=== PATIENT | female | born 1965 | race Caucasian/White ===

== ENCOUNTER 2020-03-02 10:03 | Outpatient (CLI) | payer OTHER, SELFPAY ==
--- NOTE | ~2020-03-02 | MM_ITS ---
EXAMINATION: MM screening ankur BI w shawanda HISTORY: Screening TECHNIQUE: Craniocaudal and mediolateral oblique 3-D tomosynthesis images were obtained and synthetic 2-D images were generated. CAD analysis was submitted and interpreted. COMPARISON: Comparison to multiple prior studies sequentially, with oldest reviewed study dated 11/2015. BREAST PARENCHYMAL COMPOSITION: There are scattered areas of fibroglandular density. FINDINGS: There is no evidence of suspicious mass, calcification, or architectural distortion to sugg est malignancy in either breast. There has been no suspicious interval change. IMPRESSION: 1. No mammographic evidence of malignancy. 2. Recommend routine screening mammography in one year. BI-RADS Category 1: Negative Reviewed, dictated and finalized at location A.
== END 2020-03-02 10:04 | disposition home or self-care (01) ==
PROVIDERS: PCP Family Medicine; Visit Provider Family Medicine
DX: Z12.31 Encounter for screening mammogram for malignant neoplasm of breast (principal)
CPT/HCPCS: 77063; 77067

== ENCOUNTER 2020-07-08 02:04 | Outpatient (CLI) | payer OTHER, SELFPAY ==
[2020-07-08 17:23] LABS: SARS-CoV-2 RNA PCR Negative
== END 2020-07-08 02:05 | disposition home or self-care (01) ==
LOC: ANHCOVIDDT 02:04
PROVIDERS: PCP Family Medicine; Visit Provider Internal Medicine Gastroenterology
DX: Z01.812 Encounter for preprocedural laboratory examination (principal); Z20.822 Contact with and (suspected) exposure to COVID-19
CPT/HCPCS: C9803; U0003

== ENCOUNTER 2020-07-11 01:25 | Day surgery (SDC) | payer OTHER, SELFPAY ==
[2020-06-29 10:55] VITALS: BMI 48.0
[2020-07-11 08:20] VITALS: BP 126/95; PULSE 84; RESP 20; TEMP 36.5; O2SAT 100
[2020-07-11] MEDS: LACTATED RINGERS 1,000 ML 150 ML IV CONT (08:31)
[2020-07-11 08:36] LABS: Glucose Point of Care 87 (65-105)
--- NOTE | 2020-07-11 09:04 | WPDANESEPPF ---
Anes - Initial Pre Proc Eval Procedure: Operation Date: 07/11/20 09:30 Proposed Procedures p Screening Colonoscopy - Seferino Aden MD Date/Time: 07/11/20 09:04 Surgeon: Seferino Aden MD Pre Op Diagnosis: neoplasm screening Patient Data Age: 54 Gender: F Height: 5 ft 3 in Weight: 120.6 kg Last Vital Signs Temp 97.7 F 07/11/20 08:20 Pulse 84 07/11/20 08:20 Resp 20 07/11/20 08:20 BP 126/95 H 07/11/20 08:20 Pulse Ox 100 07/11/20 08:20 Allergies Allergy/AdvReac Type Severity Reaction Status Date / Time No Known Allergies Allergy Unknown Verified 07/11/20 08:18 Home Medications Medication Instructions Recorded Confirmed Type furosemide 20 mg tablet 20 mg PO QAM #90 tablet 02/09/20 06/29/20 Rx lisinopril 20 mg tablet 20 mg PO DAILY #90 tablet 02/09/20 06/29/20 Rx metformin 1,000 mg tablet 1,000 mg PO BID #180 tablet 02/09/20 06/29/20 Rx rivaroxaban 2.5 mg tablet 2.5 mg PO BID #60 tablet 05/23/20 06/29/20 Rx Laboratory Tests 07/11/20 08:26 POC Capillary Glucose 87 mg/dl mg/dl (65-105) Patient hx anesthesia problems: none Family hx anesthesia problems: none PMFSH Past Medical History Medical History Benign essential HTN Borderline diabetes Diverticulitis Morbid obesity Varicose veins of bilateral lower extremities with other complications Family History Family History Sibling Family history of lung cancer, Onset Age: 66 Other Diabetes mellitus Social History Social History (Updated 05/23/20 @ 11:04 by Violetta Guillaume) Social History: Single Smoking packs per day: 0.5 Smoking cigarettes per day: 10.0 Years smoked: 6 Smoking pack-years: 3.00 Smoking status: Former smoker Tobacco type: cigarettes Second hand tobacco smoke exposure: No Smoking end date: 06/30/89 Alcohol intake: current Substance use: never Substance use type: does not use Additional living arrangements comments: pt lives w/mother. pt takes care of her mother Gender identity (if verbalized by the patient): Female Spiritual care concerns: No Anes - Eval Final PreProcedure Day of Procedure 07/11/20 09:04 Patient weight: morbidly obese Heart: regular rate and rhythm Lungs: clear to auscultation Airway: Mallampati scale class II Neurological: alert and oriented Last oral intake: >/= 8 hours ASA classification: III Emergent: no Anesthetic plan: proceed Anesthesia type and monitoring: general GIVS and standard monitoring Informed Consent: The patient's anesthetic plan and its attendant risks and benefits were discussed with the patient/family/POA. Questions were solicited and answers provided to the satisfaction of the patient/family/POA.
--- NOTE | 2020-07-11 09:30 | PM.HPGS ---
History of Present Illness History of Present Illness Consent: Risks, benefits, and alternatives have been discussed and questions answered. Patient agrees to proceed with procedure. Chief complaint: neoplasm screening Narrative: Ysabel Austin is a 54 year old female here for screening colonoscopy, last one 10 years ago. Review of Systems Constitutional: Constitutional: Denies headache(s) and Denies weakness Eyes: Eyes: Denies blurry vision ENT: Reports Normal hearing present, Denies headache(s) and Denies neck pain Cardiovascular: Cardiovascular: Denies chest pain and Denies dyspnea Respiratory: Respiratory: Denies dyspnea Gastrointestinal: Gastrointestinal: Reports no additional gastrointestinal complaints Genitourinary: Genitourinary: Denies dysuria Musculoskeletal: Musculoskeletal: Denies neck pain Integumentary/Breasts: Skin/Breast: Denies dry skin Neurologic: Reports Normal hearing present, Denies headache(s) and Denies weakness Psychiatric: Psychiatric: Denies anxiety Endocrine: Endocrine: Denies change in body appearance Hematologic/Lymphatic: Hematologic/Lymphatic: Denies easy bleeding Allergic/Immunologic: Allergic/Immunologic: Denies urticaria PMFSH Past Medical History Medical History (Updated 07/11/20 @ 09:30 by Seferino Aden MD) Benign essential HTN Borderline diabetes Colon cancer screening Diverticulitis Morbid obesity Varicose veins of bilateral lower extremities with other complications Family History Family History Sibling Family history of lung cancer, Onset Age: 66 Other Diabetes mellitus Social History Social History (Updated 05/23/20 @ 11:04 by Violetta Guillaume) Social History: Single Smoking packs per day: 0.5 Smoking cigarettes per day: 10.0 Years smoked: 6 Smoking pack-years: 3.00 Smoking status: Former smoker Tobacco type: cigarettes Second hand tobacco smoke exposure: No Smoking end date: 06/30/89 Alcohol intake: current Substance use: never Substance use type: does not use Additional living arrangements comments: pt lives w/mother. pt takes care of her mother Gender identity (if verbalized by the patient): Female Spiritual care concerns: No Meds Home Medications and Allergies Home Medications Medication Instructions Recorded Confirmed Type furosemide 20 mg tablet 20 mg PO QAM #90 tablet 02/09/20 06/29/20 Rx lisinopril 20 mg tablet 20 mg PO DAILY #90 tablet 02/09/20 06/29/20 Rx metformin 1,000 mg tablet 1,000 mg PO BID #180 tablet 02/09/20 06/29/20 Rx rivaroxaban 2.5 mg tablet 2.5 mg PO BID #60 tablet 05/23/20 06/29/20 Rx Allergies Allergy/AdvReac Type Severity Reaction Status Date / Time No Known Allergies Allergy Unknown Verified 07/11/20 08:18 Vital Signs Vital Signs - 24 hr 07/11/20 08:20 Temperature 97.7 F Pulse Rate 84 Respiratory Rate 20 Blood Pressure 126/95 H Pulse Oximetry 100 Exam Const: General: comfortable and no acute distress HENMT: General nose exam: Normal nares present Eyes: General: appearance normal, both eyes and all related structures Neck: Neck: no JVD Resp: Auscultation: clear to auscultation bilaterally Cardio: Rate: regular rate Rhythm: regular rhythm GI: Inspection: non-distended GI Palp: Yes Soft to palpation Skin: General skin exam: normal color Neuro: General: gait normal Speech: normal speech Extrem: General: normal to inspection Psych: Mental Status: mental status grossly normal Assessment and Plan Assessment and plan (1) Colon cancer screening: Code(s): Z12.11 - Encounter for screening for malignant neoplasm of colon Status: Acute Assessment and Plan: will proceed with colonoscopy
[2020-07-11 09:52] VITALS: BP 91/55; PULSE 73; RESP 18; O2SAT 100
[2020-07-11 10:02] VITALS: BP 104/62; PULSE 73; RESP 20; O2SAT 99
[2020-07-11 10:21] VITALS: BP 99/65; PULSE 76; RESP 20; O2SAT 100
== END 2020-07-11 10:34 | disposition home or self-care (01) ==
PROVIDERS: PCP Family Medicine; Visit Provider Internal Medicine Gastroenterology
PROC: 0DJD8ZZ Inspection of Lower Intestinal Tract, Via Natural or Artificial Opening Endoscopic (ICD-10-PCS; CPT 45378; principal; 2020-07-11 09:30)
DX: Z12.11 Encounter for screening for malignant neoplasm of colon (principal); K57.30 Diverticulosis of large intestine without perforation or abscess without bleeding; K64.8 Other hemorrhoids; Z87.19 Personal history of other diseases of the digestive system; Z79.84 Long term (current) use of oral hypoglycemic drugs; I10 Essential (primary) hypertension; R73.03 Prediabetes; E66.01 Morbid (severe) obesity due to excess calories; Z68.42 Body mass index [BMI] 45.0-49.9, adult; Z87.891 Personal history of nicotine dependence
CPT/HCPCS: 45378; C9803; J2704; J7120; U0003

== ENCOUNTER 2021-03-07 09:45 | Outpatient (CLI) | payer OTHER, SELFPAY ==
--- NOTE | ~2021-03-07 | MM_ITS ---
EXAMINATION: MM screening ankur BI w shawanda HISTORY: Screening mammogram TECHNIQUE: Craniocaudal and mediolateral oblique 3-D tomosynthesis images were obtained and synthetic 2-D images were generated. CAD analysis was submitted and interpreted. COMPARISON: 03/02/2020, 05/14/2018, 06/05/2016 bilateral digital screening mammogram examinations BREAST PARENCHYMAL COMPOSITION: There are scattered areas of fibroglandular density. FINDINGS: There is no evidence of suspicious mass, calcification, or architectural distortion to sugg est malignancy in either breast. There has been no suspicious interval change. IMPRESSION: 1. No mammographic evidence of malignancy. 2. Recommend routine screening mammography in one year. BI-RADS Category 1: Negative Reviewed, dictated and finalized at location A.
== END 2021-03-07 09:46 | disposition home or self-care (01) ==
LOC: ANHIMG 09:47
PROVIDERS: PCP Family Medicine; Visit Provider Family Medicine
DX: Z12.31 Encounter for screening mammogram for malignant neoplasm of breast (principal)
CPT/HCPCS: 77063; 77067

== ENCOUNTER 2021-10-20 07:45 | Outpatient (CLI) | payer OTHER, SELFPAY ==
--- NOTE | ~2021-10-20 | US_ITS ---
EXAMINATION: US venous doppler [facility] DATE: 10/20/2021 09:06 INDICATION: Phlebitis and thrombophlebitis of lower extremity. TECHNIQUE: Grayscale ultrasound images without and with compression and Doppler ultrasound images of the bilateral lower extremity veins were obtained. COMPARISON: Ultrasound 01/16/2017 FINDINGS: The visualized portions of right common femoral vein, profunda (deep) femoral vein, femoral vein, pop liteal vein, peroneal veins, posterior tibial veins, and greater saphenous vein outflow are patent. The visualized portions of left common femoral vein, profunda femoral vein, femoral vein, popliteal v ein, peroneal veins, posterior tibial veins, and greater saphenous vein outflow are patent. IMPRESSION: 1. No deep venous thrombosis. Reviewed, dictated and finalized at location B.
--- NOTE | ~2021-10-20 | US_ITS ---
EXAMINATION: US art doppler w press LE BI DATE: 10/20/2021 09:07 INDICATION: Phlebitis and thrombophlebitis of the lower extremities TECHNIQUE: Segmental pressures and plethysmographic and Doppler waveforms of the brachial and lower e xtremity arteries were obtained. COMPARISON: None. FINDINGS: Right and left brachial artery pressures of 113 mm Hg and 111 mm Hg, respectively, are concordant (no rmal difference <= 30 mmHg). The right and left high-thigh pressure indices were unable to be obtaine d due to patient body habitus. The right ankle-brachial index (CURTIS) is 0.93 (normal >= 0.9-1). The right great toe-brachial index (T BI) is 0.54 (normal >= 0.6-0.8). The right lower extremity segmental pressure gradients are increased between the right above and kwsmi-ttk-wdxj popliteal artery and borderline elevated between the righ t vwsoj-zps-dutr popliteal artery and the arteries at the right ankle (normal gradients <= 20-30 mmHg between adjacent levels on the same leg or the same levels on the two legs). Arterial waveforms are biphasic with brisk systolic upstrokes throughout the arteries of the right lower limb. The left CURTIS is 1.02. The left TBI is 0.62. The left lower extremity segmental pressure gradients are increased between the left above and hsqtc-vgb-xvlj popliteal artery and borderline elevated between the left mjnxa-xee-dwmi popliteal artery and the arteries at the right ankle. Arterial waveforms are triphasic at the left common femoral artery and biphasic at the remaining arteries in the left lower limb with brisk systolic upstrokes throughout. IMPRESSION: 1. Mild arterial occlusive disease to the right lower limb with borderline right CURTIS and moderately d ecreased right TBI. 2. Normal left CURTIS with borderline decreased left TBI. Reviewed, dictated and finalized at location A. IMPRESSION: 1. Mild arterial occlusive disease to the right lower limb with borderline righ t CURTIS and moderately decreased right TBI. 2. Normal left CURTIS with borderline decreased left TBI.
== END 2021-10-20 07:46 | disposition home or self-care (01) ==
PROVIDERS: PCP Family Medicine; Visit Provider Nurse Practitioner Gerontology
DX: I80.3 Phlebitis and thrombophlebitis of lower extremities, unspecified (principal); M79.606 Pain in leg, unspecified; R60.9 Edema, unspecified; I73.9 Peripheral vascular disease, unspecified
CPT/HCPCS: 93923; 93970

== ENCOUNTER 2022-04-24 14:15 | Outpatient (CLI) | payer OTHER, SELFPAY ==
--- NOTE | ~2022-04-24 | MM_ITS ---
EXAMINATION: MM screening ankur BI w shawanda HISTORY: Screening mammogram, family history of breast cancer in her sister. TECHNIQUE: Craniocaudal and mediolateral oblique 3-D tomosynthesis images were obtained and synthetic 2-D images were generated. CAD analysis was submitted and interpreted. COMPARISON: 03/07/2021, 03/02/2020, 05/14/2018 BREAST PARENCHYMAL COMPOSITION: There are scattered areas of fibroglandular density. FINDINGS: Scattered benign-appearing calcifications are present. No suspicious mass, calcification, o r architectural distortion are identified in either breast to suggest malignancy. There has been no s uspicious interval change. IMPRESSION: 1. No mammographic evidence of malignancy. 2. Recommend routine screening mammography in one year. BI-RADS Category 2: Benign finding(s). Reviewed, dictated and finalized at location A.
== END 2022-04-24 14:16 | disposition home or self-care (01) ==
LOC: ANHIMG 14:18
PROVIDERS: PCP Family Medicine; Visit Provider Nurse Practitioner Gerontology
DX: Z12.31 Encounter for screening mammogram for malignant neoplasm of breast (principal)
CPT/HCPCS: 77063; 77067

== ENCOUNTER 2023-09-02 08:09 | Outpatient (CLI) | payer OTHER, SELFPAY ==
--- NOTE | ~2023-09-02 | MM_ITS ---
EXAMINATION: MM screening ankur BI w shawanda HISTORY: Screening mammogram TECHNIQUE: Craniocaudal and mediolateral oblique 3-D tomosynthesis images were obtained and synthetic 2-D images were generated. CAD analysis was submitted and interpreted. COMPARISON: 04/24/2022, 03/07/2021 screening mammogram examinations BREAST PARENCHYMAL COMPOSITION: The breasts are almost entirely fatty. FINDINGS: There is no evidence of suspicious mass, calcification, or architectural distortion to sugg est malignancy in either breast. There has been no suspicious interval change. IMPRESSION: 1. No mammographic evidence of malignancy. 2. Recommend routine screening mammography in one year. BI-RADS Category 1: Negative Reviewed, dictated and finalized at location A. 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
== END 2023-09-02 08:10 | disposition home or self-care (01) ==
LOC: ANHIMG 08:11
PROVIDERS: PCP Family Medicine; Visit Provider Family Medicine
DX: Z12.31 Encounter for screening mammogram for malignant neoplasm of breast (principal)
CPT/HCPCS: 77063; 77067

== ENCOUNTER 2023-09-26 14:50 | Outpatient (CLI) | payer OTHER, SELFPAY ==
--- NOTE | ~2023-09-26 | XR_ITS ---
EXAMINATION: XR chest 2V Exam Date/Time: 09/26/2023 15:00 CDT HISTORY: R06.00 - Dyspnea, unspecified Comparison: 08/11/2011. RESULT: Lines, tubes, and devices: Cholecystectomy clips. Lungs and pleura: Mild diffuse reticulonodular opacities. Cardiomediastinal silhouette: Stable. Other: No acute osseous or upper abdominal finding. IMPRESSION: Pulmonary opacities may represent bronchiolitis, as can be seen with atypical infection, asthma, aspi ration, and small airways disease. Reviewed, dictated and finalized at location K. IMPRESSION: Pulmonary opacities may represent bronchiolitis, as can be seen with atypical i nfection, asthma, aspiration, and small airways disease.
== END 2023-09-26 14:51 | disposition home or self-care (01) ==
LOC: ANHIMG 14:53
PROVIDERS: PCP Family Medicine; Visit Provider Physician Assistant
DX: R06.00 Dyspnea, unspecified (principal); R91.8 Other nonspecific abnormal finding of lung field
CPT/HCPCS: 71046

== ENCOUNTER 2023-10-07 14:57 | Outpatient (CLI) | payer OTHER, SELFPAY ==
--- NOTE | ~2023-10-07 | CT_ITS ---
Non-contrast Head CT History: Dizziness and giddiness Technique: Axial non-contrast imaging of the brain was performed. Dose reduction technique was used on this scan by utilizing automated exposure control and iterative reconstruction technique. The dose -length product (DLP) was 605.33 mGy-cm. Findings: There is no evidence of intracranial hemorrhage, mass lesion, or acute infarct. Brain par enchyma appears normal. The ventricles and subarachnoid spaces are normal in size. The calvarium ap pears normal. The visualized paranasal sinuses and mastoid air cells are clear. Impression: No significant abnormality seen. Reviewed, dictated and finalized at location . Impression: No significant abnormality seen.
== END 2023-10-07 14:58 | disposition home or self-care (01) ==
LOC: ANHIMG 15:07
PROVIDERS: PCP Family Medicine; Visit Provider Physician Assistant
DX: H53.9 Unspecified visual disturbance (principal); R27.0 Ataxia, unspecified
CPT/HCPCS: 70450

== ENCOUNTER 2023-10-15 10:37 | Outpatient (CLI) | payer OTHER, SELFPAY ==
--- NOTE | 2023-10-15 10:51 | ECHO_ITS ---
Patient Info Name: Ysabel Austin Age: 57 years : 1965 Gender: Female Ht: 63 in Wt: 272 lbs BSA: 2.42 m2 HR: 84 bpm BP: 117 / 87 mmHg Heart Rhythm: Sinus Rhythm Technical Quality: Fair Exam Date: 10/15/2023 11:56 AM Exam Location: Echo Lab Patient Status: Outpatient Admit Date: 10/15/2023 Staff Ordering Physician: Rafaela Berrios PA-C Proof Passer: Susanne Manuel RDCS Attending Provider: Rafaela Berrios PA-C Referring Physician: Agustina YORK; Exam Type: CA echo dop color flow w con Study Info Indications R55 - Syncope and collapse Complete two-dimensional, color flow and Doppler transthoracic echocardiogram is performed with contrast to opacify the left ventricle and to improve the deliniation of the left ventricle endocardial borders. Contrast/Agitated Saline Contrast/Ag. Saline: Definity Amount: 2.00 ml Administered By: Susanne Manuel RDCS Existing IV Access: Yes IV Access Condition: patent with no signs of infiltration Summary 1. Definity contrast administered improved wall motion interpretation. 2. Left ventricular chamber dimension is normal. 3. Left ventricular systolic function is normal, estimated at 55-60%. 4. The left ventricular diastolic function is grade I diastolic dysfunction. 5. E/e' 8 is minimally elevated. Left Ventricle E/e' 8 is minimally elevated. Definity contrast administered improved wall motion interpretation. Left ventricular chamber dimension is normal. Left ventricular systolic function is normal, estimated at 55-60%. The left ventricular diastolic function is grade I diastolic dysfunction. Right Ventricle Right ventricular systolic function is normal and with normal TAPSE 2.5 cm. Right ventricular chamber dimension is normal. Left Atria Left atrial chamber dimension is normal. Right Atria Right atrial chamber dimension is normal. Aortic Valve The aortic valve is trileaflet. There is no aortic valve stenosis. There is no aortic valve regurgitation. Pulmonic Valve There is no pulmonic regurgitation. Mitral Valve There is no mitral valve stenosis. There is no mitral valve regurgitation. Tricuspid Valve There is no tricuspid valve regurgitation. Pericardium/Pleural There is no pericardial effusion. Inferior Vena Cava Normal inferior vena cava with >50% collapse upon inspiration consistent with normal right atrial pressure, 5 mmHg. Aorta The aortic root size at the sinus of Valsalva is normal. Tricuspid Valve Name Value Normal Estimated PAP/RSVP RA Pressure 5 mmHg <=5 Report Signatures
[2023-10-15] MEDS: PERFLUTREN LIPID MICROSPHERES 1.5 ML VIAL DILUTED TO 10 ML TOTAL VOLUME IV PUSH (12:30)
--- NOTE | 2023-10-15 12:51 | IVDEFINITY ---
Prior to administration of IV Definity the patient was educated on the risks and benefits of the imaging enhancing agent including potential adverse side effects. The patient verbalized understanding. Allergies were verified. No exclusion criteria were identified and at least one of the following inclusion criteria were met: 1) physician request, 2) patient technically difficult to image (per the [place] [employer]ocardi[employer] guidelines of two or more segments not discernable within the apical view), or 3) questionable left ventricular function. ?
== END 2023-10-15 10:38 | disposition home or self-care (01) ==
LOC: ANHCARD 10:37
PROVIDERS: PCP Family Medicine; Visit Provider Physician Assistant
DX: R55 Syncope and collapse (principal)
CPT/HCPCS: C8929; Q9957

== ENCOUNTER 2024-05-18 14:28 | Outpatient (CLI) | payer OTHER, SELFPAY ==
--- NOTE | ~2024-05-18 | XR_ITS ---
EXAMINATION: XR_[id number]_CR DATE: 05/18/2024 14:52 INDICATION: Neck pain. TECHNIQUE: 4 views of cervical spine were obtained. COMPARISON: None. FINDINGS: There is kyphosis of lower cervical spine. Vertebral body heights are normal. There is mild ly decreased disc height at C4-C5 and moderately decreased disc height at C5-C6 and C6-C7. There is m ultilevel facet joint osteoarthritis, moderate on the left from C3-C4 through C5-C6. No central canal stenosis or prevertebral soft tissue swelling. IMPRESSION: 1. Moderate cervical spondylosis. Reviewed, dictated and finalized at location A. 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
== END 2024-05-18 14:29 | disposition home or self-care (01) ==
LOC: MICIMG 14:29
PROVIDERS: PCP Family Medicine; Visit Provider Physician Assistant
DX: M43.02 Spondylolysis, cervical region (principal)
CPT/HCPCS: 72040

== ENCOUNTER 2024-05-25 04:35 | Emergency (ER) | payer OTHER, SELFPAY ==
--- NOTE | ~2024-05-25 | XR_ITS ---
EXAMINATION: XR chest 1V portable DATE: 05/25/2024 05:03 INDICATION: Chest pain. TECHNIQUE: A single frontal view of the chest was obtained. COMPARISON: Chest 2 views 09/26/2023 FINDINGS: Again seen is eventration of anterior right hemidiaphragm. No pneumonia, pleural effusion, or pneumothorax. The heart size is normal. Calcified mediastinal lymph nodes are consistent with old granulomatous disease. IMPRESSION: 1. No acute cardiopulmonary disease. Reviewed, dictated and finalized at location A. 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
--- NOTE | 2024-05-25 04:35 | ECG_ITS ---
Test Date: 2024-05-25 04:46:12 Measurements Intervals [place] Rate: 88 P: 56 [place]: 151 QRS: 36 QRSD: 73 T: 42 QT: 323 QTc: 393 Interpretive Statements SINUS RHYTHM LOW QRS VOLTAGE IN PRECORDIAL LEADS BASELINE ARTIFACT- I, II, III, AVR, AVL, AVF, V4-V6 BORDERLINE ECG No previous ECG available for comparison Electronically Signed On 05-25-2024 06:26:37 FINANCIAL WRITER by Orestes Fowler D.O.
[2024-05-25 04:39] VITALS: PULSE 91; RESP 20; TEMP 36.4; O2SAT 100
[2024-05-25 04:45] VITALS: O2SAT 99
[2024-05-25 05:03] LABS: Basophils Percent Auto 0.3 % (0.2-1.2); Eosinophils Percent Auto 0.2 % (0-4.4); Hematocrit 43.2 % (37.0-47.0); Hemoglobin 13.8 g/dL (12.0-15.0); Immature Granulocyte Absolute 0.07 K/mm3 (0.00-0.031); Immature Granulocyte Percent A 0.6 % (0-0.5); Lymphocytes Absolute Auto 4.14 K/mm3 (0.9-3.2); Lymphocytes Percent Auto 34.7 % (18.3-44.2); Mean Corpuscular HGB Conc 31.9 g/dl (32-36); Mean Corpuscular Hemoglobin 28.2 pg (26-34); Mean Corpuscular Volume 88.2 fl (80-100); Mean Platelet Volume 9.5 fl (7.4-10.4); Monocytes Absolute Auto 1.1 K/mm3 (0.1-0.6); Monocytes Percent Auto 9.6 % (2.6-8.5); Neutrophils Absolute Auto 6.5 K/mm3 (1.3-6.7); Neutrophils Percent Auto 54.6 % (45.5-73.1); Platelet Count Result 357 k/mm3 (150-375); Red Cell Distribution Width 13.8 % (11.5-14.5); White Blood Count 11.9 K/mm3 (4.5-10.0)
[2024-05-25 05:07] LABS: Prothrombin Time 13.3 Seconds (11.1-14.7)
[2024-05-25 05:08] LABS: Partial Thromboplastin Time 26.7 Seconds (22.3-36.8)
[2024-05-25 05:11] LABS: Alanine Aminotransferase 15 U/L (6-35); Albumin Level 4.6 g/dL (3.5-5.1); Alkaline Phosphatase 88 U/L (38-126); Anion Gap 10 mmol/L (4-12); Aspartate Amino Transferase 17 U/L (14-36); Bilirubin,Total 0.6 mg/dL (0.2-1.3); Blood Urea Nitrogen 25 mg/dL (7-17); Calcium 9.4 mg/dL (8.4-10.2); Carbon Dioxide 24 mmol/L (22-30); Chloride 104 mmol/L (98-107); Estimated CRCL calculation 83 ml/min; Estimated Glomerular Filt Rate > 60; Glucose 110 mg/dL (65-110); Lipase 97 U/L (23-300); Potassium 4.1 mmol/L (3.4-5.0); Sodium 138 mmol/L (137-145)
[2024-05-25 05:29] LABS: Troponin I < 0.012 ng/mL (0.000-0.034)
--- NOTE | 2024-05-25 07:23 | ED.CHESTPAIN ---
HPI - Chest Pain General Chief Complaint: Chest Pain Stated Complaint: Chest and arm pain Time Seen by Provider: 05/25/24 07:12 History of Present Illness HPI narrative: Pt presents with pain in upper back and left shoulder radiating down back of left arm and into chest contantly for several days. Pt has seen PCP and started on muscle relaxer and prednisone but has gotten no relief. Pt says it is worse with movement and cannot sleep. The pain never completely goes away. Pt denies SOB. Related Data Allergies Allergy/AdvReac Type Severity Reaction Status Date / Time ibuprofen AdvReac Vomiting Verified 05/25/24 04:44 Review of Systems Review of Systems: All systems reviewed & are unremarkable except as noted in HPI and below PMFSH Past Medical History Medical History Benign essential HTN BMI greater than 40 Borderline diabetes Colon cancer screening Diverticulitis Left knee DJD Morbid obesity Varicose veins of bilateral lower extremities with other complications Family History Family History Sibling Family history of lung cancer, Onset Age: 66 Other Diabetes mellitus Social History Social History Social History: Single Smoking packs per day: 0.5 Smoking cigarettes per day: 10.0 Years smoked: 6 Smoking pack-years: 3.00 Smoking status: Former smoker Tobacco type: cigarettes Second hand tobacco smoke exposure: No Smoking end date: 06/30/89 Alcohol intake: current Alcohol use details: Occasionally Substance use: never Substance use type: does not use Do You Feel Safe in your Home?: Yes Lack of Transportation: No Lack of Food: Never True Current Housing: I Have Housing Concerned About Future Housing: No Difficulty Paying Gas/Electric Bills: No Difficulty Paying for Meds: No Currently Unemployed: No Education: Don't Know Difficulty w/ Childcare or Family Care: No Living arrangements: with family Additional living arrangements comments: pt lives w/mother. 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 Gender identity (if verbalized by the patient): Female Sexual Orientation (if Verbalized by the Patient): Straight or Heterosexual Spiritual care concerns: No Exam Const: General: healthy appearing and no acute distress Nutritional Appearance: well nourished Orientation/consciousness: patient oriented x3 Limitations: no limitations Neck: Neck: normal visual inspection Chest: Chest palpation & inspection: normal inspection of the chest Resp: Effort & Inspection: normal respiratory effort Auscultation: clear to auscultation bilaterally Cardio: Rate: regular rate Rhythm: regular rhythm Back/Spine/Pelvis: Other: tender trapezius muscle on left with spasm Skin: General skin exam: normal color Rashes: no rashes Wounds: no wounds Neuro: General: patient oriented x3, moves all extremities and no focal motor deficits Speech: normal speech Extrem: General: normal to inspection and no clubbing, cyanosis or edema Psych: Mental Status: mental status grossly normal Affect: normal affect Attitude: cooperative Course Vital Signs Vital signs: Vital Signs Temperature 97.6 F 05/25/24 04:39 Pulse Rate 91 05/25/24 04:39 Respiratory Rate 20 05/25/24 04:39 Pulse Oximetry 100 05/25/24 04:39 Oxygen Delivery Room Air 05/25/24 04:39 Temperature 97.6 F 05/25/24 04:39 Pulse Rate 76 05/25/24 09:01 Respiratory Rate 17 05/25/24 09:01 Blood Pressure 122/88 05/25/24 09:01 Pulse Oximetry 100 05/25/24 09:01 Oxygen Delivery Room Air 05/25/24 04:45 MDM - Chest Pain MDM Narrative Medical decision making narrative: Pt presents with left shoulder and back pain radiating down arm and into chest for several days prednisone and muslce relaxer not helping . Doubt cardiac but will rule out with ekg and cxr and labs. Will try valium and morphine here while waiting and likely home on nrco and valium with follow up. second trop ok. Pt feels better home on norco and valium Lab Data 05/25/24 04:50 05/25/24 04:50 Labs: Lab Results 05/25/24 05/25/24 Range/Units 04:50 07:36 WBC 11.9 H (4.5-10.0) K/mm3 RBC 4.90 (4.2-5.4) M/mm3 Hgb 13.8 (12.0-15.0) g/dL Hct 43.2 (37.0-47.0) % MCV 88.2 (80-100) fl MCH 28.2 (26-34) pg MCHC 31.9 L (32-36) g/dl RDW 13.8 (11.5-14.5) % Plt Count 357 (150-375) k/mm3 MPV 9.5 (7.4-10.4) fl Immature Gran % (Auto) 0.6 H (0-0.5) % Neut % (Auto) 54.6 (45.5-73.1) % Lymph % (Auto) 34.7 (18.3-44.2) % [place] % (Auto) 9.6 H (2.6-8.5) % Eos % (Auto) 0.2 (0-4.4) % Baso % (Auto) 0.3 (0.2-1.2) % Lymph # (Auto) 4.14 H (0.9-3.2) K/mm3 [place] # (Auto) 1.1 H (0.1-0.6) K/mm3 Eos # (Auto) 0.0 (0-0.3) K/mm3 Baso # (Auto) 0.0 (0.0-0.1) K/mm3 Abs Immat Gran (auto) 0.07 H (0.00-0.031) K/mm3 Absolute Neuts (auto) 6.5 (1.3-6.7) K/mm3 Absolute Nucleated RBC 0.000 (0.0-0.012) K/mm3 Nucleated RBC % 0.0 (0.0-0.2) % PT 13.3 (11.1-14.7) Seconds INR 1.0 APTT 26.7 (22.3-36.8) Seconds Sodium 138 (137-145) mmol/L Potassium 4.1 (3.4-5.0) mmol/L Chloride 104 (98-107) mmol/L Carbon Dioxide 24 (22-30) mmol/L Anion Gap 10 (4-12) mmol/L BUN 25 H (7-17) mg/dL Creatinine 0.80 (0.7-1.0) mg/dL Estim Creat Clear Calc 83 ml/min Estimated GFR > 60 (59 - ) Glucose 110 (65-110) mg/dL Calcium 9.4 (8.4-10.2) mg/dL Total Bilirubin 0.6 (0.2-1.3) mg/dL AST 17 (14-36) U/L ALT 15 (6-35) U/L Alkaline Phosphatase 88 (38-126) U/L Troponin I < 0.012 < 0.012 (0.000-0.034) ng/mL Total Protein 8.0 (6.3-8.2) g/dL Albumin 4.6 (3.5-5.1) g/dL Lipase 97 (23-300) U/L Discharge Plan Discharge Clinical Impression: Spasm of left trapezius muscle Patient Disposition: Home, Self-Care Condition: Improved Instructions: Antibiotic Form, Muscle Spasm (ED) Prescriptions: New hydrocodone-acetaminophen 5-325 mg tablet 1 tablet PO Q6H PRN (Reason: pain) Qty: 14 0RF diazepam [Valium] 5 mg tablet 5 mg PO TID PRN (Reason: muscle spasm) Qty: 14 0RF No Action fluticasone propionate 50 mcg/actuation spray,suspension 1 spray intranasal DAILY Qty: 16 0RF Rx Instructions: administer into each nostril paroxetine HCl 20 mg tablet 20 mg PO .COMPLEX Qty: 30 2RF Rx Instructions: Start by taking 10mg (1/2 tab) PO x7 days, then increase to 20 mg (1 tab) PO daily celecoxib [Celebrex] 200 mg capsule 200 mg PO BID Qty: 60 0RF Hold Instructions: .Provider Order prednisone 10 mg tablet 10 mg PO DAILY Qty: 30 0RF Rx Instructions: Take PO 4 tabs daily x3 days, 3 tabs daily x3 days, 2 tabs daily x3 days, 1 tab daily x3 days tizanidine 2 mg tablet 2 mg PO TID PRN (Reason: muscle spasticity) Qty: 60 0RF lisinopril 20 mg tablet See Rx Instructions .ROUTE .COMPLEX Qty: 90 1RF Dose Instruction: TAKE 1 TABLET BY MOUTH DAILY Rx Instructions: TAKE 1 TABLET BY MOUTH DAILY metformin 1,000 mg tablet 1,000 mg PO BID Qty: 180 0RF Follow-up/Referrals: Ivanna Quinteros MD [Primary Care Provider] - Stand Alone Forms: Work/School Release IP
[2024-05-25] MEDS: diazePAM INJ (*CRX) 10 MG/2 ML SYRINGE 5 MG IV PUSH (07:34)
[2024-05-25] MEDS: MORPHINE SULFATE (*CRX) 4 MG/ML INJ IV PUSH (07:34)
[2024-05-25 07:35] VITALS: BP 102/59; PULSE 89; RESP 19; O2SAT 100
[2024-05-25 08:16] VITALS: BP 132/87; PULSE 77; RESP 17; O2SAT 100
[2024-05-25 08:19] LABS: Troponin I < 0.012 ng/mL (0.000-0.034)
[2024-05-25 09:01] VITALS: BP 122/88; PULSE 76; RESP 17; O2SAT 100
== END 2024-05-25 09:17 | disposition home or self-care (01) ==
PROVIDERS: Student in an Organized Health Care Education/Training Program; Emergency Provider Emergency Medicine; PCP Family Medicine
DX: M62.830 Muscle spasm of back (principal); I10 Essential (primary) hypertension; E66.01 Morbid (severe) obesity due to excess calories; Z68.42 Body mass index [BMI] 45.0-49.9, adult
CPT/HCPCS: 36415; 71045; 80053; 83690; 84484; 85025; 85610; 85730; 93005; 96374; 96375; 99284; J2270; J3360

== ENCOUNTER 2024-06-21 13:09 | Outpatient (CLI) | payer OTHER, SELFPAY ==
--- NOTE | ~2024-06-21 | MR_ITS ---
EXAMINATION: MR cervical spine wo con DATE: 06/21/2024 13:47 INDICATION: Other spondylosis with radiculopathy, cervical region. TECHNIQUE: Magnetic resonance imaging (MRI) of the cervical spine was performed without intravenous c ontrast. COMPARISON: Cervical spine radiographs 05/18/2024 FINDINGS: There is 2 mm anterolisthesis of C4 on C5. There is mild kyphosis of cervical spine. Verteb ral body heights are normal. There is mildly decreased disc height at C4-C5 and moderately decreased disc height at C5-C6 and C6-C7. The spinal cord signal intensity is normal. The following disc levels are specifically discussed: C2-C3: The disc does not extend beyond the endplate margin. There is no uncovertebral joint osteoarth ritis. There is moderate right and severe left facet joint osteoarthritis. There is no neural foramin al stenosis. There is no central canal stenosis. C3-C4: The disc does not extend beyond the endplate margin. There is no uncovertebral joint osteoarth ritis. There is mild right and severe left facet joint osteoarthritis. There is mild left neural fora julian stenosis. There is no central canal stenosis. C4-C5: The disc does not extend beyond the endplate margin. There is mild bilateral uncovertebral kj nt osteoarthritis. There is severe bilateral facet joint osteoarthritis. There is mild left neural fo raminal stenosis. There is no central canal stenosis. C5-C6: The disc is bulging. There is moderate bilateral uncovertebral joint osteoarthritis. There is severe left facet joint osteoarthritis. There is mild bilateral neural foraminal stenosis. There is m ild central canal stenosis with ventral indentation of the spinal cord. C6-C7: The disc is bulging. There is moderate and severe left uncovertebral joint osteoarthritis. The re is mild left facet joint osteoarthritis. There is mild right and moderate left neural foraminal st enosis. There is mild central canal stenosis with ventral indentation of the spinal cord. C7-T1: The disc does not extend beyond the endplate margin. There is no uncovertebral joint osteoarth ritis. There is moderate right and mild left facet joint osteoarthritis. There is mild right neural f oraminal stenosis. There is no central canal stenosis. IMPRESSION: 1. Moderate cervical spondylosis. Reviewed, dictated and finalized at location A. VERY DRIVER/SUPERVISOR
--- OUTSIDE RECORDS SUMMARY | 2024-06-28 18:44 | XMS_ITS | Clinical Summary ---
Author Organization [facility] Address [address] [place] [address]. [place] [address] [place] [address] Care Team Providers Care Mortgage Lender Name Role Phone Ivanna Quinteors MD Primary Care Provider [phone] Allergies No known active allergies Medications metFORMIN 1000 MG tablet Take 1,000 mg by mouth 2 (two) times daily with meals. Active furosemide 20 MG tablet Take 20 mg by mouth daily. Active lisinopril-hydro chlorothiazide 20-12.5 MG tablet Take 1 tablet by mouth daily. Active hydrocodone-acet aminophen 5-325 MG tabletIndication s:Acute Pain < 7 Day Supply Take 1 tablet by mouth every 6 (six) hours as needed for Pain. 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 Gender Identity Not on file Sexual Orientation Not on file Last Filed Vital Signs Vital Sign Reading Time Taken Comments Blood Pressure 125/54 05/16/2019 5:54 PM 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 Pulse 100 05/16/2019 3:42 PM 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 Temperature 36.2 ??C (97.2 ??F) 05/16/2019 3:42 PM CS T Respiratory Rate 20 05/16/2019 3:42 PM 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 Oxygen Saturation 99% 05/16/2019 5:54 PM 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 Inhaled Oxygen Concentration - - Weight 128.4 kg (283 lb) 05/16/2019 3:42 PM 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 Height 160 cm (5' 3 ) 05/16/2019 3:42 PM 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 Body Mass Index 50.13 05/16/2019 3:42 PM 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 Plan of Treatment Health Maintenance Due Date Last Done Comments Cervical Cancer Screening Pa p Smear (Age 30 to 64) Every 3 Years 1963 Colorectal Cancer Screening Colonoscopy (10 Years) 1963 Annual Physical 12/06/1966 Hepatitis C 12/06/1981 DTaP, Tdap and Td Vaccines ( 1 - Tdap) 12/06/1982 Cervical Cancer Screening Pa p with HPV Testing (Age 30 to 64) Every 5 Years 12/06/1993 Cervical Cancer Screening with HPV 12/06/1993 Mammogram Screening 2003 Zoster Vaccines (1 of 2) 12/06/2013 COVID-19 Vaccine ( - 2023-2 5 season) 2024 Influenza Adult (#1) 2024 RSV Immunization or 60+ Years (1 - 1-dose 75+ series) 12/06/2038 Meningococcal Vaccine Aged Out No guido jayne eligible based on patient's age to complete this topic Pneumococcal Vaccine: Pediat rics (0 to 5 Years) and At-Risk Patients (6 to 64 Years) Aged Out No longer eligible b ased on patient's age to complete this topic RSV Immunizations Under 20 Months Aged Out No longer eligible based on patient's age to complete this topic Insurance [facility] Care Teams Mortgage Lender Relationship Specialty Start Date End Date Ivanna Quinteros MD [address] [facility] [address] [facility] [address] [place] [address] PCP - General FAMILY PRACTICE 05/16/19
--- OUTSIDE RECORDS SUMMARY | 2024-06-28 18:44 | XMS_ITS | Encounter Summary ---
Author Organization [facility] Address [address] [place] [address]. [place] [address] [place] [address] Care Team Providers Care Steam Hand Name Role Phone Ivanna Quinteros MD Primary Care Provider [phone] Reason for Referral * Imaging (Emergency) - Closed Specialty Diagnoses / Procedures Referred By Kuldeep perez Referred To Contact RADIOLOGY Procedures CT ABD+PEL W IV CON ONLY Shruthi Salmon FNP [address] [address] Phone: tel: fax: Referral ID Status Reason Start Date Expiration Date Visits Re quested Visits Authorized [id number] Closed 05/16/2019 06/15/2020 1 1 S SKINNER Reason for Visit * Reason Comments Urinary Symptoms Encounter Details Date Type Department Care Team (Late st Contact Info) Description 05/16/2019 3:40 PM PELTS SKINNER - 05/16/2019 6:07 PM PELTS SKINNER Emergency [facility] Emergency Room [address] [place] [address] Shruthi Salmon FNP [address] [phone] Urinary Symptoms Discharge Disposition: Home or Self Care (Routine Discharge) Social History Tobacco Use Types Packs/Day Years Used Date Smoking Tobacco: Never Smokeless Tobacco: Never Alcohol Use Standard Drinks/Week Comments No 0 (1 standard drink = 0.6 oz pur e alcohol) AUDIT-C Answer Date Recorded Frequency of Alcohol Consumption Never 05/16/2019 Average Number of Drinks Not on file 11/16/2 019 Frequency of Binge Drinking Not on file 05/01 Comments No Sex and Gender Information Value Date Recorded Sex Assigned at Not on file Legal Sex Female 3:34 PM PELTS SKINNER Gender Identity Not on file Sexual Orientation Not on file documented as of this encounter Last Filed Vital Signs Vital Sign Reading Time Taken Comments Blood Pressure 125/54 05/16/2019 5:54 PM [facility]TS [facility]NER Pulse 100 05/16/2019 3:42 PM [facility]TS [facility] Temperature 36.2 ??C (97.2 ??F) 05/16/2019 3:42 PM CS T Respiratory Rate 20 05/16/2019 3:42 PM [facility]TS [facility]NER Oxygen Saturation 99% 05/16/2019 5:54 PM [facility]ELTS [facility]NER Inhaled Oxygen Concentration - - Weight 128.4 kg (283 lb) 05/16/2019 3:42 PM [facility]ELTS SK[facility] Height 160 cm (5' 3 ) 05/16/2019 3:42 PM [facility]TS [facility] Body Mass Index 50.13 05/16/2019 3:42 PM PELTS SKINNER documented in this encounter Discharge Instructions * Discharge Instructions* GENOVEVA Archer - 05/16/2019 5:53 PM PELTS SKINNER Take medications as directed and follow discharge instructions carefully. Follow up with your primary care physician without fail. Return for worsening of symptoms. ?Our practice is committed to providing you the very best in healthcare. We want to hear from you! Please fill out the survey you get from us. Your feedback is anonymous & helps us improve the patient experience for you and others in the community we serve.? S SKINNER S SKINNER * Attachments The following attachments cannot be sent through Care Everywhere. * Diverticulitis Discharge Instructions (Macedonian) documented in this encounter Medications at Time of Discharge furosemide 20 MG tablet Take 20 mg by mouth daily. hydrocodone-aceta minophen 5-325 MG tabletIndications :Acute Pain < 7 Day Supply Take 1 tablet by mouth every 6 (six) hours as needed for Pain. Indications: Acute Pain < 7 Day Supply 14 tablet 05/16/2019 lisinopril-hydroc hlorothiazide 20-12.5 MG tablet Take 1 tablet by mouth daily. metFORMIN 1000 MG tablet Take 1,000 mg by mouth 2 (two) times daily with meals. ciprofloxacin (CIPRO) 500 MG tablet Take 1 tablet (500 mg total) by mouth 2 (two) times daily for 7 days. 14 tablet 05/16/2019 05/23/2019 metroNIDAZOLE 500 MG tablet Take 1 tablet (500 mg total) by mouth 3 (three) times daily for 10 days. 30 tablet 05/16/2019 05/26/2019 documented as of this encounter ED Notes * GENOVEVA Archer - 05/16/2019 4:37 PM CST Images from the original note were not included. Chief Complaint Chief Complaint Patient presents with ??? Urinary Symptoms History of Present Illness 53-year-old female presents today with left lower quadrant abdominal pain. Pain has been intermittent states it started yesterday. Patient denies n/v/d/f/c/, no urinary symptoms, however she does have pain in llq after she voids. Patient denies hx kidney stones or diverticulitis. Medical History ALLERGIES: No Known Allergies MEDICATIONS: Prior to Admission medications Medication Sig Start Date End Date Taking? Authorizing Provider ciprofloxacin (CIPRO) 500 MG tablet Take 1 tablet (500 mg total) by mouth 2 (two) times daily for 7days. 05/16/19 05/23/19 Yes GENOVEVA Archer furosemide 20 MG tablet Take 20 mg by mouth daily. Yes Doc Abstract hydrocodone-acetaminophen 5-325 MG tablet Take 1 tablet by mouth every 6 (six) hours as needed for Pain. Indications: Acute Pain < 7 Day Supply 05/16/19 Yes GENOVEVA Archer lisinopril-hydrochlorothiazide 20-12.5 MG tablet Take 1 tablet by mouth daily. Yes Doc Abstract metFORMIN 1000 MG tablet Take 1,000 mg by mouth 2 (two) times daily with meals. Yes Doc Abstract metroNIDAZOLE 500 MG tablet Take 1 tablet (500 mg total) by mouth 3 (three) times daily for 10 days. 05/16/19 05/26/19 Yes GENOVEVA Archer PAST MEDICAL HISTORY: Past Medical History: Diagnosis Date ??? Diabetes mellitus (CMS/HCC) ??? Hypertension PAST SURGICAL HISTORY: History reviewed. No pertinent surgical history. FAMILY HISTORY: No family history on file. SOCIAL HISTORY: Social History Tobacco Use ??? Smoking status: Never Smoker ??? Smokeless tobacco: Never Used Substance Use Topics ??? Alcohol use: No Frequency: Never ??? Drug use: No Review of Systems Review of Systems Constitutional: Negative for chills, fatigue and fever. HENT: Negative for congestion, ear pain, postnasal drip, rhinorrhea, sinus pressure, sinus pain andsore throat. Eyes: Negative for pain. Respiratory: Negative for cough, chest tightness, shortness of breath and wheezing. Cardiovascular: Negative for chest pain and palpitations. Gastrointestinal: Positive for abdominal pain. Negative for diarrhea, nausea and vomiting. Abdominal distention: llq abd pain. Genitourinary: Negative for dysuria, flank pain, frequency and urgency. Musculoskeletal: Negative for back pain and neck pain. Skin: Negative for rash. All other systems reviewed and are negative. Physical Exam Filed Vitals: 05/16/19 1542 BP: 138/90 Pulse: 100 Resp: 20 Temp: 97.2 ??F (36.2 ??C) TempSrc: Temporal SpO2: 100% Weight: 128.4 kg (283 lb) Height: 5' 3 (1.6 m) Physical Exam Constitutional: She is oriented to person, place, and time. She appears well- developed and well-nourished. HENT: Head: Normocephalic. Right Ear: External ear normal. Left Ear: External ear normal. Nose: Nose normal. Mouth/Throat: Oropharynx is clear and moist. Eyes: Conjunctivae and EOM are normal. Pupils are equal, round, and reactive to light. Neck: Normal range of motion. Neck supple. Cardiovascular: Normal rate, regular rhythm, normal heart sounds and intact distal pulses. Pulmonary/Chest: Effort normal and breath sounds normal. Abdominal: Soft. Normal appearance and bowel sounds are normal. There is tenderness in the left lower quadrant. There is no rebound, no guarding and no CVA tenderness. Musculoskeletal: Normal range of motion. Neurological: She is alert and oriented to person, place, and time. Skin: Skin is warm and dry. Capillary refill takes less than 2 seconds. Psychiatric: She has a normal mood and affect. Her behavior is normal. Judgment and thought contentnormal. Nursing note and vitals reviewed. Diagnostic Studies / Procedures ELECTROCARDIOGRAMS: No results found for this visit on 05/16/19. LABORATORY STUDIES: Results for orders placed or performed during the hospital encounter of 05/16/19 URINALYSIS, AUTO, COMPLETE Result Value Ref Range COLOR YELLOW TRANSPARENCY CLEAR Specific [place] (U) 1.020 1.000 - 1.030 U PH 6.0 5.0 - 9.0 LEUKOCYTE ESTERASE 1+ (A) NEGATIVE NITRITES NEGATIVE NEGATIVE PROTEIN, URINE NEGATIVE NEGATIVE URINE GLUCOSE NEGATIVE NEGATIVE U KETONES NEGATIVE NEGATIVE Urine Bilirubin NEGATIVE NEGATIVE BLOOD NEGATIVE NEGATIVE WBC/HPF 0-5 0 - 5 /HPF RBC/HPF NONE SEEN 0 - 5 /HPF EPI/HPF MANY /HPF CULTURE & SENSITIVITY INDICATED? SPECIMEN SETUP FOR CULTURE BACTERIA (URINE) FEW /HPF CBC W/DIFF AUTOMATED Result Value Ref Range WBC 9.5 4.4 - 11.0 x10'3/uL RBC 4.16 (L) 4.50 - 5.10 x10'6/uL HGB 12.2 (L) 12.3 - 15.3 G/DL HCT 37.2 35.9 - 44.6 % MCV 89.4 80.0 - 96.0 FL MCH 29.3 25.3 - 30.9 PG MCHC 32.8 31.0 - 34.1 G/DL RDW 13.3 12.4 - 15.1 % PLT 286 151 - 353 x10'3/uL MPV 9.9 9.6 - 12.0 FL RBC MORPHOLOGY NORMAL PLT MORPH. NORMAL WBC MORPHOLOGY NORMAL LYMPHOCYTES 27.7 15.8 - 45.0 % NEUTROPHILS 60.7 42.1 - 71.9 % MONOCYTES 9.4 5.7 - 12.5 % EOSINOPHILS 1.4 0.0 - 5.6 % BASOPHILS 0.5 0.0 - 1.3 % ABS. NEUTROPHILS TOTAL 5.79 1.40 - 6.00 x10'3/uL IMMATURE GRANS 0.3 0.0 - 0.5 % ABS. LYMPHOCYTES 2.64 0.80 - 4.70 x10'3/uL COMPREHENSIVE METABOLIC PANEL Result Value Ref Range GLUCOSE 116 (H) 70 - 99 MG/DL BUN 19 (H) 7 - 18 MG/DL CREATININE 0.90 0.55 - 1.02 MG/DL SODIUM 137 136 - 145 MMOL/L POTASSIUM 3.5 3.5 - 5.1 MMOL/L CHLORIDE 99 (L) 100 - 108 MMOL/L CO2 28.9 21 - 32 MMOL/L CALCIUM 8.9 8.5 - 10.1 MG/DL TOTAL BILIRUBIN 0.3 0.2 - 1.2 MG/DL TOTAL PROTEIN 7.3 6.4 - 8.2 G/DL ALBUMIN 3.3 (L) 3.4 - 5.0 G/DL AST 14 (L) 15 - 37 U/L ALT 21 14 - 55 U/L ALK PHOS 85 50 - 136 U/L ANION GAP 9.1 5 - 15 MMOL/L BUN CREATININE RATIO 21.1 6 - 26 A/G RATIO 0.8 (L) 1.0 - 2.0 RATIO eGFR Non-Afr. Amer. 72 (L) >90 ML/MIN/1.73 M2 eGFR Afr. Amer. 83 (L) >90 ML/MIN/1.73 M2 LIPASE Result Value Ref Range LIPASE 76 73 - 393 UNITS/L IMAGING STUDIES CT ABD+PEL W IV CON ONLY Final Result by User, [id number] (05/16 4556) IMAGING STUDIES: CT ABD+PEL W CON DATE: 05/16/2019 5:07 PM COMPARISON STUDIES: No previous available. CLINICAL HISTORY: LLQ pain, suspect diverticulitis TECHNIQUE: Helical axial images were acquired from the lung bases to the symphysis pubis after the administration of intravenous contrast. Sagittal and coronal reconstructions were created. Radiation dose reduction technique was utilized. CONTRAST: 100cc Isovue 370 IV. FINDINGS AND IMPRESSION: LOWER CHEST: 1. Lungs: Lungs bases are clear. No pleural effusion. 2. Visible mediastinum: No lesions. ABDOMEN: 1. Liver: No lesions. 2. Gallbladder: Post cholecystectomy. 3. Spleen: No lesions, no splenomegaly. 4. Pancreas: No focal lesions. 5. Adrenal glands: No focal lesions. 6. Kidneys: No focal lesions. No hydronephrosis or nephrolithiasis. No hydroureter or obvious distal stones. 7. Retroperitoneal space: The visible lymph nodes do not appear pathologically enlarged. No mesenteric lymphadenopathy or edema. 8. Stomach and bowel: Nonobstructive pattern. No free air. 9. Aorta: No significant atherosclerotic disease or aneurysmal dilation. PELVIS: 1. Appendix: Not pathologically distended. 2. Colon and rectum: Diverticulosis of the descending colon and sigmoid. Acute diverticulitis of the mid sigmoid, inflamed diverticula, fat stranding, no fluid collection, abscess or perforation. 3. Uterus and adnexa: No obvious masses. 4. Urinary bladder: No stones or abnormal wall thickening. 5. Pelvic space: Small amount of free fluid. BONES AND OTHER INCIDENTAL FINDINGS: 1. Bones: Lower lumbar facet arthropathy.. Voice recognition software utilized. Interpreted By: Omar Rai, 05/16/2019 5:38 PM ED Course / Medical Decision Making MDM Diagnosis management comments: diverticulitis, rx cipro flagyl and norco to f/u with pcp Pulse oximetry interpreted by me: 100% on room air. Impression normal. Rhythm strip interpreted by me: Plan: - Labs - Meds I have discussed today's findings with the patient and provided information regarding the likely diagnosis. The patient has been given information regarding their treatment, a close follow-up is recommended as well as concerning symptoms for which they should seek urgent or emergent attention. I have expressed the the importance of seeking medical advice should there be any new, or worsening symptoms or persistence of their condition. The patient is stable at discharge and has verbalized understanding of these instructions. MDM Number of Diagnoses or Management Options Acute diverticulitis: Amount and/or Complexity of Data Reviewed Clinical lab tests: ordered and reviewed Tests in the radiology section of CPT??: reviewed and ordered Patient Progress Patient progress: stable ED Course as of May 16 1754 Sat May 16, [id number] LEUKOCYTE ESTERASE: (!) 1+ [MS] 1752 CT ABD+PEL W IV CON ONLY [MS] 1752 ??Colon and rectum: Diverticulosis of the descending colon and sigmoid. Acute diverticulitis of the mid sigmoid, inflamed diverticula, fat stranding, no fluid collection, abscess or perforation. [MS] ED Course User Index [MS] GENOVEVA Archer Clinical Impression Acute diverticulitis (Primary) Disposition: Discharge GENOVEVA Archer 05/16/191753 Cosigned by Lyle Zavala MD at 05/19/2019 1:22 PM PELTS SKINNER S SKINNER S SKINNER * Samira Soares RN - 05/16/2019 3:42 PM CST Left lower groin pain since yesterday. History of the same with UTI> Denies dysuria. S SKINNER documented in this encounter Plan of Treatment Not on file documented as of this encounter Procedures Procedure Name Priority Date/Time Associated Diagnosis Comments CT ABD+PEL W CON STAT 05/16/2019 5:25 PM PELTS SKINNER COMPREHENSIVE METABOLIC PANEL STAT 05/16/2019 4:37 PM PELTS [facility]INNER CBC W/DIFF AUTOMATED STAT 05/16/2019 4:37 PM [facility]TS SK[facility]NER LIPASE STAT 05/16/2019 4:37 PM PELTS [facility]NER URINALYSIS, AUTO, COMPLETE STAT 05/16/2019 4:04 PM [facility] URINE BACTERIA CULTURE Routine 9 4:02 PM PELTS SKINNER documented in this encounter Results * CT ABD+PEL W IV CON ONLY (05/16/2019 5:25 PM PELTS SKINNER) Anatomical Region Laterality Modality Abdomen Computed Tomogra phy 05/16/2019 5:38 PM PELTS [facility]INNER Impressions 05/16/2019 5:41 PM PELTS SKINNER FINDINGS AND IMPRESSION: LOWER CHEST: 1. ??Lungs: Lungs bases are clear. No pleural effusion. 2. ??Visible mediastinum: No lesions. ABDOMEN: 1. ??Liver: No lesions. 2. ??Gallbladder: Post cholecystectomy. 3. ??Spleen: No lesions, no splenomegaly. 4. ??Pancreas: No focal lesions. 5. ??Adrenal glands: No focal lesions. 6. ??Kidneys: No focal lesions. No hydronephrosis or nephrolithiasis. ?No hydroureter or obvious distal stones. 7. ??Retroperitoneal space: The visible lymph nodes do not appear pathologically enlarged. No mesenteric lymphadenopathy or edema. 8. ??Stomach and bowel: Nonobstructive pattern. No free air. 9. ??Aorta: No significant atherosclerotic disease or aneurysmal dilation. ?? PELVIS: 1. ??Appendix: Not pathologically distended. 2. ??Colon and rectum: Diverticulosis of the descending colon and sigmoid. Acute diverticulitis of the mid sigmoid, inflamed diverticula, fat stranding, no fluid collection, abscess or perforation. 3. ??Uterus and adnexa: No obvious masses. 4. ??Urinary bladder: No stones or abnormal wall thickening. 5. ??Pelvic space: Small amount of free fluid. BONES AND OTHER INCIDENTAL FINDINGS: 1. ??Bones: Lower lumbar facet arthropathy.. ? Voice recognition software utilized. Interpreted By: Omar Rai, 05/16/2019 5:38 PM Narrative 05/16/2019 5:41 PM PELTS SKINNER IMAGING STUDIES: ?? CT ABD+PEL W CON ? DATE: ??05/16/2019 5:07 PM COMPARISON STUDIES: No previous available. ?? CLINICAL HISTORY: ?LLQ pain, suspect diverticulitis ? TECHNIQUE: ??Helical axial images were acquired from the lung bases to the symphysis pubis after the administration of intravenous contrast. ??Sagittal and coronal reconstructions were created. Radiation dose reduction technique was utilized. CONTRAST: 100cc Isovue 370 IV. Procedure Note Omar Rai MD - 05/16/2019 IMAGING STUDIES: CT ABD+PEL W CON DATE: 05/16/2019 5:07 PM COMPARISON STUDIES: No previous available. CLINICAL HISTORY: LLQ pain, suspect diverticulitis TECHNIQUE: Helical axial images were acquired from the lung bases tothe symphysis pubis after the administration of intravenous contrast.Sagittal and coronal reconstructions were created. Radiation dose reduction technique was utilized. CONTRAST: 100cc Isovue 370 IV. FINDINGS AND IMPRESSION: LOWER CHEST: 1. Lungs: Lungs bases are clear. No pleural effusion. 2. Visible mediastinum: No lesions. ABDOMEN: 1. Liver: No lesions. 2. Gallbladder: Post cholecystectomy. 3. Spleen: No lesions, no splenomegaly. 4. Pancreas: No focal lesions. 5. Adrenal glands: No focal lesions. 6. Kidneys: No focal lesions. No hydronephrosis or nephrolithiasis.No hydroureter or obvious distal stones. 7. Retroperitoneal space: The visible lymph nodes do not appear pathologically enlarged. No mesenteric lymphadenopathy or edema. 8. Stomach and bowel: Nonobstructive pattern. No free air. 9. Aorta: No significant atherosclerotic disease or aneurysmal dilation. PELVIS: 1. Appendix: Not pathologically distended. 2. Colon and rectum: Diverticulosis of the descending colon andsigmoid. Acute diverticulitis of the mid sigmoid, inflamed diverticula, fat stranding, no fluid collection, abscess or perforation. 3. Uterus and adnexa: No obvious masses. 4. Urinary bladder: No stones or abnormal wall thickening. 5. Pelvic space: Small amount of free fluid. BONES AND OTHER INCIDENTAL FINDINGS: 1. Bones: Lower lumbar facet arthropathy.. Voice recognition software utilized. Interpreted By: Omar Rai, 05/16/2019 5:38 PM Shruthi Salmon [facility] CT Final Res ult * LIPASE (05/16/2019 4:37 PM PELTS SKINNER) Pathologist [facility] LIPASE 76 73 - 393 UNITS/L 05/16/2019 4:53 PM PELTS SKINNER [facility] 05/16/2019 4:37 PM PELTS SKINNER Shruthi Salmon [facility] Final Res ult [facility] [address] [place] [address], * (ABNORMAL) COMPREHENSIVE METABOLIC PANEL (05/16/2019 4:37 PM PELTS SKINNER) Pathologist [facility] GLUCOSE 116(H) 70 - 99 MG/DL 05/16/2019 4:53 PM [facility] BUN 19(H) 7 - 18 MG/DL 05/16/2019 4:53 PM [facility] CREATININE S/P/B 0.90 0.55 - 1.02 MG/DL 05/16/2019 4:53 PM [facility] SODIUM S/P/B 137 136 - 145 MMOL/L 05/16/2019 4:53 PM [facility] POTASSIUM S/P/B 3.5 3.5 - 5.1 MMOL/L 05/16/2019 4:53 PM [facility] CHLORIDE S/P/B 99(L) 100 - 108 MMOL/L 05/16/2019 4:53 PM [facility] CO2 28.9 21 - 32 MMOL/L 05/16/2019 4:53 PM [facility] CALCIUM S/P/B 8.9 8.5 - 10.1 MG/DL 05/16/2019 4:53 PM [facility] BILIRUBIN TOTAL S/P/B 0.3 0.2 - 1.2 MG/DL 05/16/2019 4:53 PM [facility] TOTAL PROTEIN S/P/B 7.3 6.4 - 8.2 G/DL 05/16/2019 4:53 PM [facility] ALBUMIN S/P/B 3.3(L) 3.4 - 5.0 G/DL 05/16/2019 4:53 PM [facility] AST 14(L) 15 - 37 U/L 05/16/2019 4:53 PM [facility] ALT 21 14 - 55 U/L 05/16/2019 4:53 PM [facility] ALKALINE PHOSPHATASE S/P/B 85 50 - 136 U/L 05/16/2019 4:53 PM [facility] ANION GAP 9.1 5 - 15 MMOL/L 05/16/2019 4:53 PM [facility] BUN CREATININE RATIO 21.1 6 - 26 05/16/2019 4:53 PM [facility] A/G RATIO 0.8(L) 1.0 - 2.0 RATIO 05/16/2019 4:53 PM [facility] EGFR NON-AFR. AMER. 72(L) >90 ML/MIN/1.7 3 M2 05/16/2019 4:53 PM [facility] EGFR AFR. AMER. 83(L) >90 ML/MIN/1.7 3 M2 05/16/2019 4:53 PM [facility] Comment: NOTE: eGFR is not calculated for patients <18 years of age. This is an estimated GFR (CKD EPI) and should not be used for calculating drug doses. 05/16/2019 4:37 PM PELTS SKINNER us Shruthi Salmon [facility] Final Res ult [facility] [address] [place] [address], [place] [phone] * (ABNORMAL) CBC W/DIFF AUTOMATED (05/16/2019 4:37 PM PELTS SKINNER) WBC 9.5 4.4 - 11.0 x10'3/uL 05/16/2019 4:39 PM [facility] RBC 4.16(L) 4.50 - 5.10 x10'6/uL 05/16/2019 4:39 PM [facility] HGB 12.2(L) 12.3 - 15.3 G/DL 05/16/2019 4:39 PM [facility] HCT 37.2 35.9 - 44.6 % 05/16/2019 4:39 PM [facility] MCV 89.4 80.0 - 96.0 FL 05/16/2019 4:39 PM [facility] MCH 29.3 25.3 - 30.9 PG 05/16/2019 4:39 PM [facility] MCHC 32.8 31.0 - 34.1 G/DL 05/16/2019 4:39 PM [facility] RDW 13.3 12.4 - 15.1 % 05/16/2019 4:39 PM [facility] PLT 286 151 - 353 x10'3/uL 05/16/2019 4:39 PM [facility] MPV 9.9 9.6 - 12.0 FL 05/16/2019 4:39 PM [facility] RBC MORPHOLOGY NORMAL 05/16/2019 4:39 PM [facility] PLT MORPH. NORMAL 05/16/2019 4:39 PM [facility] WBC MORPHOLOGY NORMAL 05/16/2019 4:39 PM [facility] LYMPHOCYTES % 27.7 15.8 - 45.0 % 05/16/2019 4:39 PM [facility] NEUTROPHILS % 60.7 42.1 - 71.9 % 05/16/2019 4:39 PM [facility] MONOCYTES % 9.4 5.7 - 12.5 % 05/16/2019 4:39 PM [facility] EOSINOPHILS 1.4 0.0 - 5.6 % 05/16/2019 4:39 PM [facility] BASOPHILS 0.5 0.0 - 1.3 % 05/16/2019 4:39 PM [facility] ABS. NEUTROPHILS TOTAL 5.79 1.40 - 6.00 x10'3/uL 05/16/2019 4:39 PM [facility] IMMATURE GRANS % 0.3 0.0 - 0.5 % 05/16/2019 4:39 PM [facility] ABS. LYMPHOCYTES 2.64 0.80 - 4.70 x10'3/uL 05/16/2019 4:39 PM [facility] 05/16/2019 4:37 PM PELTS SKINNER us Shruthi Salmon [facility] Final Res ult [facility] [address] [place] [address], [place] [phone] * (ABNORMAL) URINALYSIS, AUTO, COMPLETE (05/16/2019 4:04 PM PELTS SKINNER) COLOR (U) YELLOW 05/16/2019 4:23 PM [facility] TRANSPARENCY CLEAR 05/16/2019 4:23 PM [facility] SPECIFIC GRAVITY (U) 1.020 1.000 - 1.030 05/16/2019 4:23 PM [facility] U PH 6.0 5.0 - 9.0 05/16/2019 4:23 PM [facility] LEUKOCYTES (U) 1+(A) NEGATIVE 05/16/2019 4:23 PM [facility] NITRITES NEGATIVE NEGATIVE 05/16/2019 4:23 PM [facility] PROTEIN (U) NEGATIVE NEGATIVE 05/16/2019 4:23 PM [facility] URINE GLUCOSE NEGATIVE NEGATIVE 05/16/2019 4:23 PM [facility] KETONES MG/DL (U) NEGATIVE NEGATIVE 05/16/2019 4:23 PM [facility] BILIRUBIN (U) NEGATIVE NEGATIVE 05/16/2019 4:23 PM [facility] BLOOD (U) NEGATIVE NEGATIVE 05/16/2019 4:23 PM [facility] WBC/HPF 0-5 0 - 5 /HPF 05/16/2019 4:23 PM [facility] RBC/HPF NONE SEEN 0 - 5 /HPF 05/16/2019 4:23 PM [facility] EPI/HPF MANY /HPF 05/16/2019 4:23 PM [facility] CULTURE & SENSITIVITY INDICATED? SPECIMEN SETUP FOR CULTURE 05/16/2019 4:23 PM [facility] BACTERIA (U) FEW /HPF 05/16/2019 4:23 PM [facility] URINE SPECIMEN OBTAINED BY CLEAN CATCH PROCEDURE / Unknown 05/16/2019 4:04 PM PELTS SKINNER Shruthi Salmon [facility] URINE ORDERABLES Final Re sult Performing Organization Address [facility]/ZIP Co de Phone Number [facility] [address] [place] [address], [place] [phone] * CULTURE URINE (05/16/2019 4:02 PM PELTS SKINNER) SPEC DESCRIPTION URINE CLEAN CATCH 05/16/2019 4:25 PM [facility] SPECIAL REQUESTS NO SPECIAL REQUEST 05/16/2019 4:25 PM [facility] CULTURE RESULT POLYMICROBIAL GROWTH CONSISTENT WITH NORMAL GENITAL CASSIDY. ?? SUSCEPTIBILITIES NOT ROUTINELY PERFORMED. 05/19/2019 9:03 AM [facility] URINE SPECIMEN OBTAINED BY CLEAN CATCH PROCEDURE / Unknown 05/16/2019 4:02 PM PELTS SKINNER 05/16/2019 4:24 PM PELTS SKINNER Shruthi Salmon [facility] MICROBIOLOGY - GENERAL OR DERABLES Final Result [facility] [address] [facility] [place] [address], [place] [phone] [facility] [address] [place] [address], [place] [phone] documented in this encounter Visit Diagnoses Diagnosis Acute diverticulitis- Primary documented in this encounter Administered Medications Inactive Administered Medications - up to 3 most recent administrations Medication Order MAR Action Action Date Dose Rate Site iopamidol (ISOVUE-370) 76 % injection 100 mL 100 mL, Intravenous, IMG once as needed, Contrast, 1 dose, Starting on 05/16/19 at 1725, Until 05/16/19 at 1725 Given 05/16/2019 5:25 PM [facility] 100 mLs Left Arm levofloxacin (LEVAQUIN) tablet 500 mg 500 mg, Oral, Once, 1 dose, On 05/16/19 at 1800 Given 05/16/2019 5:54 PM [facility] 500 mg metroNIDAZOLE (FLAGYL) tablet 500 mg 500 mg, Oral, Once, 1 dose, On 05/16/19 at 1800 Given 05/16/2019 5:54 PM [facility] 500 mg documented in this encounter Active and Recently Administered Medications Times are shown in [facility]. Scheduled Medication Order 05/14/2019 05/15/2019 05/16/2019 levofloxacin (LEVAQUIN) tablet 500 mg (COMPLETED) 500 mg, Oral, Once, 1 dose, On 05/16/19 at 1800 1754 (Given - Provid er: Sarbjit Kee RN) metroNIDAZOLE (FLAGYL) tablet 500 mg (COMPLETED) 500 mg, Oral, Once, 1 dose, On 05/16/19 at 1800 1754 (Given - Provid er: Sarbjit Kee RN) PRN Medication Order 05/14/2019 05/15/2019 05/16/2019 iopamidol (ISOVUE-370) 76 % injection 100 mL (COMPLETED) 100 mL, Intravenous, IMG once as needed, Contrast, 1 dose, Starting on 05/16/19 at 1725, Until 05/16/19 at 1725 1725 (Given - Provid er: EDSON White) documented in this encounter Care Teams Steam Hand Relationship Specialty Start Date End Date Rostovtseva, Ivanna, MD [address] [address] [address] [place] [address] PCP - General FAMILY PRACTICE 05/16/19 documented as of this encounter
== END 2024-06-21 13:10 | disposition home or self-care (01) ==
PROVIDERS: PCP Family Medicine; Visit Provider Physician Assistant
DX: M47.22 Other spondylosis with radiculopathy, cervical region (principal)
CPT/HCPCS: 72141

== ENCOUNTER 2024-09-09 09:15 | Outpatient (RCR) | payer OTHER, SELFPAY ==
--- NOTE | 2024-06-22 12:12 | PTOPEVAL1 ---
Assessment and note entered by Ysabel Camp, PT Evaluation Information Assessment Status Evaluation Diagnosis M47.22 ICD-10 Condition Codes (PT) Cervicalgia M54.2,Radiculopathy, cervical M54.13, Pain in left shoulder M25.512,Pain in left elbow M25.522,Weakness R53.1 Onset approx a month Subjective Information Pt reports feeling pain that occurred spontaneously to the neck that goes down to the L UE with tingling down to the L fingertips not so much the thumb. States she was usually able perform yard work and housework, states working from home on her desk 8-9 hours/day. Denies any trauma, fall or accidents, states that she us is currently very stressed with work due to end of year projects and deadlines. Went to the ER due to suspecting a heart attack, however Cardiac issues were ruled out; increased dosage of gabapentin to 300mg recently and has helped a lot. Reports avoiding yard work and heavier housework due to fear of pain, cant get comfortable sitting and lying down on her back; limited tolerance to sitting upright when doing work and having trouble focusing or concentrating when pain flares up. Pt's personal goal is to be able to get rid of the pain and get her life back. Assessment PT Clinical Summary Pt is a 58 yo female who presents to therapy for evaluation of a neck pain that radiates to LUEEv Aguirre significantly reduced ROM and strength influenced by pain, impaired static sitting tolerance resulting to disruption in performing her job, scored 34 on Neck Disability Scale which indicate moderate disability. She will greatly benefit from skilled PT interventions for education of proper body mechanics, proper work ergonomics, pain management, therapeutic exercises to improve ROM and strength to allow her to perform IADLs and improve her ability to perform independent functional mobility without discomfort . Plan of Care Interventions Electrical Stimulation,Hot Pack/Cold Pack,Manual Therapy,Mechanical Traction,Neuro Re-education, Patient/Caregiver Education,Therapeutic Activities ,Therapeutic Exercise,Ultrasound,Other Other Interventions IASTM, Taping PT Services Indicated Yes Treatment Frequency and 2x/wk x 12 visits Duration These treatments will address the objective and functional deficits as defined above. The patient will be advanced safely and appropriately in order for the patient to progress towards his/her prior level of function. Additional exercises will be introduced and as well as a comprehensive home exercise program upon discharge, if needed, ?to ensure carryover of functional gains achieved in the clinic. This treatment plan has been reviewed and agreement upon by the patient.
--- NOTE | 2024-06-22 12:12 | OPREHPOC ---
Outpatient Therapy Plan of Care This is a Multidisciplinary Plan of Care that may contain components documented by all disciplines (PT, OT, and ST.) PT Problem 1 PT Problem #1 Knowledge Deficit PT Goal 1 Goal / Goal Update Pt will demo good understanding of diagnosis and prognosis of condition. Pt will perform HEPs that improve flexibility and stability of cervical and shoulder muscles indep Target Visit 10 PT Problem 2 PT Problem #2 Pain PT Goal 1 Goal / Goal Update Pt will report pain intensity of 3/10 with provocative movements. Pt will report complete resolution of pain when performing work duties and IADLS. Target Visit 16 PT Problem 3 PT Problem #3 Impaired Range of Motion PT Goal 1 Goal / Goal Update Pt will demo 10 deg increase active ROM for cervical and shoulder joints. Pt will demo WNL active ROM without pain and or radicular symptoms. Target Visit 12 PT Problem 4 PT Problem #4 Impaired Strength PT Goal 1 Goal / Goal Update Pt will demo gross muscle strength of 4/5 to all tested planes of cervical and L shoulder muscles. Target Visit 12
--- NOTE | 2024-07-21 17:37 | PTOPPROG ---
Assessment and note entered by Ysabel Camp, PT Progress Information Assessment Status Progress Diagnosis M47.22 ICD-10 Condition Codes (PT) Cervicalgia M54.2,Radiculopathy, cervical M54.13, Pain in left shoulder M25.512,Pain in left elbow M25.522,Weakness R53.1 Onset approx a month Subjective Information Pt reports has not been doing a lot of physical activity during the weekend, had been lying down on the R side on her couch due to pain and stiffness. Sleep quality is better but everytime she lays on L side or raise L arm in her sleep that she wakes up due to numbness or tingling sensation going down from L side of neck to L hand . Assessment PT Clinical Summary Pt received a total of 10 treatment sessions, demos good progress with ROM and strength, noted good improvement with pain levels and Neck Disability Index score has reduced to minimal disability compared to complete disability at [facility] . 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 Pt would benefit from continued skilled PT as she is greatly benefiting from it, and to address remaining deficits, manage pain and mobility and to return to performing functional mobility and IADLs pain free. Plan of Care Interventions Electrical Stimulation,Hot Pack/Cold Pack,Manual Therapy,Mechanical Traction,Neuro Re-education, Patient/Caregiver Education,Therapeutic Activities ,Therapeutic Exercise,Ultrasound,Other Other Interventions IASTM, Taping PT Services Indicated Yes Treatment Frequency and 2x/wk x 12 visits Duration These treatments will address the objective and functional deficits as defined above. The patient will be advanced safely and appropriately in order for the patient to progress towards his/her prior level of function. Additional exercises will be introduced and as well as a comprehensive home exercise program upon discharge, if needed, ?to ensure carryover of functional gains achieved in the clinic. This treatment plan has been reviewed and agreement upon by the patient.
--- NOTE | 2024-08-25 15:45 | PTOPPROG ---
Assessment and note entered by Ysabel Camp, PT Progress Information Assessment Status Progress Diagnosis M47.22 ICD-10 Condition Codes (PT) Cervicalgia M54.2,Radiculopathy, cervical M54.13, Pain in left shoulder M25.512,Pain in left elbow M25.522,Weakness R53.1 Onset approx a month Subjective Information Pt reports only taking the muscle relaxant at night time, however she continue to experience the discomfort and numbness that goes down to L arm and fingertips. She does not notice a significant improvement on the tingling sensation. Assessment PT Clinical Summary Pt demos slow progress with therapy and is needing a second shot for epidural injections due to persisting paresthesia that continue to wake her up at night. 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 Pt demos gains in strength, mobility and tolerance. However, she continue to demo deficits and would like to participate with further therapy due to she is getting gains however slow. Skilled PT intervention to continue at this time to work towards achieving goals. Plan of Care Interventions Electrical Stimulation,Hot Pack/Cold Pack,Manual Therapy,Mechanical Traction,Neuro Re-education, Patient/Caregiver Education,Therapeutic Activities ,Therapeutic Exercise,Ultrasound,Other Other Interventions IASTM, Taping PT Services Indicated Yes Treatment Frequency and 1-2x/wk x 8 visits Duration These treatments will address the objective and functional deficits as defined above. The patient will be advanced safely and appropriately in order for the patient to progress towards his/her prior level of function. Additional exercises will be introduced and as well as a comprehensive home exercise program upon discharge, if needed, ?to ensure carryover of functional gains achieved in the clinic. This treatment plan has been reviewed and agreement upon by the patient.
--- NOTE | 2024-09-16 09:16 | PCPTNOTE ---
This treatment is being continued on visit number [id number]. Please see documentation on both accounts to view progress. Completed interventions, outcomes, and problems have been marked as Inactive to facilitate the copying of the Care plan routine for recurring accounts.
== END 2024-09-15 23:59 | disposition home or self-care (01) ==
LOC: ANHHIPT 09:15
PROVIDERS: PCP Family Medicine; Visit Provider Physician Assistant
DX: M47.22 Other spondylosis with radiculopathy, cervical region (principal)
CPT/HCPCS: 97012; 97014; 97035; 97110; 97112; 97140; 97161; 97750; G0283

== ENCOUNTER 2024-09-23 13:15 | Outpatient (RCR) | payer OTHER, SELFPAY ==
--- NOTE | 2024-09-16 09:17 | PCPTNOTE ---
The treatment documented on this account is a continuation of the treatment documented on visit number [id number]. Please see documentation on both accounts to view progress. The Plan of Care has been transitioned and updated within the new V#. I have addressed and agree with the discipline specific Problems, Interventions, and Goals for the current certification period. Completed interventions, outcomes, and problems have been marked as Inactive to facilitate the copying of the Care plan routine for recurring accounts.
--- NOTE | 2024-09-23 14:14 | PTOPDC ---
Assessment and note entered by Ysabel Camp, PT Discharge Information Assessment Status Discharge Diagnosis M47.22 ICD-10 Condition Codes (PT) Cervicalgia M54.2,Radiculopathy, cervical M54.13, Pain in left shoulder M25.512,Pain in left elbow M25.522,Weakness R53.1 Onset approx a month Subjective Information Reports feeling much better compared to when she first started therapy. States every once in a while, feels tingling sensation, usually when in front of the computer or sitting on her favorite chair for a prolonged period of time. she is more aware now with what she can do to reduce the discomfort, does not wait till it gets worse. States compliant with HEPs. Reported Pain Level Pain Score 0: Self Report Assessment PT Clinical Summary Pt received a total of 20 PT treatment sessions and demos good progress with mobility, strength, and endurance; she denies pain. She did receive epidural injections which significantly reduced pain intensity levels, it is noteworthy that her active ROM has improved through flexibility exercises, posture has also improved and she reports she feels that the knowledge she has gained from therapy will help her be able to perform functional tasks, ADLs and IADLs with improved awareness. Recommendation for stress management and relaxation techniques and maintenance HEPs to avoid losing gains in therapy. Agreeable to DC, Skilled PT discontinued at this time. Plan of Care PT Services Indicated No
== END 2024-09-23 14:23 | disposition home or self-care (01) ==
LOC: ANHHIPT 13:15
PROVIDERS: PCP Family Medicine; Visit Provider Physician Assistant
DX: M47.22 Other spondylosis with radiculopathy, cervical region (principal)
CPT/HCPCS: 97014; 97110; 97140; 97530; 97750; G0283